=== PATIENT | male | born 1950 | race Caucasian/White ===

== ENCOUNTER → 2018-06-01 | Outpatient (CLI) | payer MEDICARE, OTHER ==
--- NOTE | 2018-06-01 13:32 | RADIOLOGY REPORT (SQ) ---
EXAM DESCRIPTION: MRI LUMBAR SPINE WITHOUT COMPLETED DATE/TIME: 06/01/2018 11:12 am REASON FOR STUDY: UNSP FRACTURE OF UNSP LUMBAR VERTEBRA, INIT FOR CLOS FX (S32.009A) S32.009A UNSP FRACTURE OF UNSP LUMBAR VERTEBRA, INIT FOR [place] COMPARISON: None. TECHNIQUE: Sagittal and Axial imaging includes T1, T2, STIR and gradient echo sequences. Coronal T2/ HASTE imaging. LIMITATIONS: None. FINDINGS: VISUALIZED UPPER ABDOMEN: Limited evaluation. No acute or suspicious findings suggested. 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 ALIGNMENT: Mild convex right scoliosis. VERTEBRAE: Compression inferior endplate L2 50- 75% height loss. Similar compression superior endpla te L4. BONE MARROW: Increased T2 signal L2 consistent with recent fracture. DISC SIGNAL: Desiccation multiple levels. POSTERIOR ELEMENTS: Generally intact. No pars defect evident. HARDWARE: None in the spine. CORD AND CONUS: Normal in size and signal intensity. Conus at the appropriate level. SOFT TISSUES: 3 cm infrarenal aortic aneurysm. L1-L2: For mild spinal stenosis due to disc osteophyte complex. Moderate right and mild left neural foraminal narrowing. L2-L3: Moderate spinal stenosis due to disc osteophyte complex and facet arthropathy. Severe right a nd moderate left neural foraminal narrowing. Disc contacts the exiting right L2 nerve root in the ne ural foramen. L3-L4: Mild spinal stenosis due to disc osteophyte complex and facet arthropathy. Mild right and mod erate left neural foraminal narrowing. L4-L5: Mild spinal stenosis. Severe left neural foraminal narrowing. Disc contacts the exiting left L4 nerve root in the neural foramen. L5-S1: Disc bulge and facet arthropathy. No significant stenosis. LOWER THORACIC: Incompletely imaged. No stenosis seen. SACRUM: Visualized upper sacrum intact. OTHER: No other significant findings. IMPRESSION: 1. Recent compression fracture L2. Chronic compression fracture L 4. 2. Spondylosis and facet arthropathy. Spinal stenosis at multiple levels, more advanced at L2-3. Va rying degrees of neural foraminal stenosis. TECHNICAL DOCUMENTATION: JOB ID: [id number] [employer]- All Rights Reserved Reading location - IP/workstation name: [email or web address]
== END ==
LOC: RAD 10:19
PROVIDERS: ATTEND Nurse Practitioner Family
DX: S32.009A Unspecified fracture of unspecified lumbar vertebra, initial encounter for closed fracture (principal); X58.XXXA Exposure to other specified factors, initial encounter; Y93.9 Activity, unspecified; Y92.9 Unspecified place or not applicable
CPT/HCPCS: 72148